=== PATIENT | female | born 1990 | race Caucasian/White ===

== ENCOUNTER → 2020-08-09 | Emergency (ER) | payer SELFPAY ==
--- NOTE | 2020-08-09 14:12 | ULT ---
Exam: Pelvic ultrasound HISTORY: Vaginal spotting. COMPARISON: None TECHNIQUE: Multiple grayscale and color Doppler images were obtained in a transabdominal pelvic ultra sound. FINDINGS: CERVIX: Not well delineated on this examination due to shadowing. UTERUS/ENDOMETRIAL STRIPE: A fluid collection is seen within the endometrial canal which contains a f etal pole and a yolk sac. Cardiac Doppler does demonstrates heart tones with a heart rate of 118 bpm. The crown-rump length measures 0.69 cm corresponding to gestational age by ultrasoun d of 6 weeks and 4 days with TOMMY on 03/31/2021. Gestational age by the last menstrual period is 7 weeks and 5 days. No subchorionic hemorrhage is seen. No free fluid is present. RIGHT OVARY: Normal in appearance with small dominant follicle seen measuring 1.3 cm. LEFT OVARY:Not visualized. IMPRESSION: Evidence of a single intrauterine gestation with heart tones documented. Gestational age by [place] surement of the crown-rump length is 6 weeks and 4 days with TOMMY on 03/31/2021.
== END ==
LOC: ERS 13:09
DX: O20.9 Hemorrhage in early pregnancy, unspecified (principal); O23.41 Unspecified infection of urinary tract in pregnancy, first trimester; O99.331 Smoking (tobacco) complicating pregnancy, first trimester; Z3A.01 Less than 8 weeks gestation of pregnancy; F17.210 Nicotine dependence, cigarettes, uncomplicated
CPT/HCPCS: 76856; 90384; 93976; 96372

== ENCOUNTER 2022-02-26 12:44 | Outpatient (CLI) | payer OTHER | END 2022-02-26 12:45 | disposition home or self-care (01) | LOC: DTY/OP 12:44 | PROVIDERS: ATTEND Family Medicine | DX: O99.213 Obesity complicating pregnancy, third trimester (principal); O99.891 Other specified diseases and conditions complicating pregnancy; E74.39 Other disorders of intestinal carbohydrate absorption; R73.03 Prediabetes; Z71.3 Dietary counseling and surveillance; Z3A.00 Weeks of gestation of pregnancy not specified | CPT/HCPCS: 97802 ==